=== PATIENT | male | born 1990 | race Caucasian/White ===

== ENCOUNTER 2017-06-08 00:51 | Emergency (ER) | payer SELFPAY | END 2017-06-08 01:06 | disposition home or self-care (01) | LOC: M ED 00:51 | DX: F19.10 Other psychoactive substance abuse, uncomplicated (principal); F10.10 Alcohol abuse, uncomplicated; F17.200 Nicotine dependence, unspecified, uncomplicated | CPT/HCPCS: 99284 ==